=== PATIENT | female | born 1950 | race Caucasian/White ===

== ENCOUNTER 2020-11-17 05:36 | Inpatient (IN) ==
[2020-11-17] MEDS ORDERED: ONDANSETRON 4 MG/2 ML VIAL IV PRN ×2 (08:35→12:01)
[2020-11-17] MEDS ORDERED: ACETAMINOPHEN 325 MG TABLET PO PRN (08:35)
[2020-11-17] MEDS ORDERED: morphine 4 MG/ML VIAL IV PRN (08:35)
--- NOTE | 2020-11-17 08:41 | Internal Med History&Physical ---
HPI History of Present Illness Patient information: Note initiated : 11/17/20 at 8:39 am Service Date, if different from initiated Date: [] Patient: Catherine Valdez a 70 y/o F admitted on 11/17/20 for Fracture/Dislocation . Chief Complaint: [Fall with left hip fracture] History of present illness: Ms. Valdez is a 70 year old F h/o GERD, p/w fall with left hip fracture. She has multiple recent episodes of falls, but never had any bone fracture. Last night after having a glass of alcohol and taking an Ambien pill, she was walking in the living room towards her bedroom when her legs suddenly gave out and she fell with her left hip landed on the ground. She denies any LOC. She was sent to outside hospital ER, and hip X rat showed a left femur hip fracture, closed. She is currently complaining of right rib pain, but denies any left hip or left thigh pain as long as she is not moving her leg. Orthopedic surgeon notified and agreed on taking her for surgery. Constitutional Constitutional: Absent chills, excessive sweating, fatigue, fever(s) and weakness EENT Eyes: Absent blurry vision, change in vision, loss of vision and other visual disturbances Ears: Absent decreased hearing and tinnitus Nose, mouth and throat: Absent abnormal hearing, dry mouth, headache(s), nasal congestion and sore throat Cardiovascular Cardiovascular: Absent chest pain, chest pain at rest, edema, irregular heart rhythm and palpatations Respiratory Respiratory: Absent cough, dyspnea and wheezing Gastrointestinal Gastrointestinal: Absent abdominal pain, constipation, diarrhea, nausea and vomiting Musculoskeletal Musculoskeletal: Present limited range of motion; Absent back pain, deformity, muscle cramps, muscle weakness and numbness Additional comments: Right > left hand cogwheeling movement Integumentary Integumentary: Absent lesions, rash and wounds Neurological Neurological: Absent focal weakness, headache(s) and numbness Psychiatric Psychiatric: Absent anxiety, depression and hallucinations PFSH PFSH All Active Problems (Updated 11/17/20 @ 08:50 by Francisco Cano MD) Current tobacco use (Acute) Closed left hip fracture (Acute) Hx of cholecystectomy (Acute) Tubal ligation status (Acute) GERD (gastroesophageal reflux disease) (Acute) Social History (Updated 11/17/20 @ 08:48 by Francisco Cano MD) smoking status: Current every day smoker alcohol intake frequency: 0-2 drinks per day substance use type: does not use MEDS/ALLERGIES Home Medications and Allergies Home Medications Medication Instructions Recorded Confirmed Type pantoprazole [Protonix] 40 mg PO QD-BID 11/17/20 11/17/20 History spironolactone 25 mg PO QDAY 11/17/20 11/17/20 History zolpidem [Ambien] 5 mg PO QHS PRN 11/17/20 11/17/20 History Allergies Allergy/AdvReac Type Severity Reaction Status Date / Time Penicillins Allergy Unknown Verified 11/17/20 07:45 Sulfa (Sulfonamide Allergy Unknown Verified 11/17/20 07:44 Antibiotics) EXAM Constitutional Vitals: Temp Pulse Resp BP Pulse Ox 37.1 C 93 H 18 113/69 92 11/17/20 07:26 11/17/20 07:26 11/17/20 07:26 11/17/20 07:26 11/17/20 07:26 General appearance: cooperative and no acute distress Head Head exam: Present atraumatic and normocephalic Eye Eye exam: Present EOMI and PERRL ENT ENT exam: Present mucous membranes moist, normal exam and normal external ear exam Neck Neck exam: Present normal inspection; Absent lymphadenopathy, tenderness and thyromegaly Respiratory Respiratory exam: Absent accessory muscle use, respiratory distress and wheezes Cardiovascular Cardiovascular exam: Present normal rate and rhythm; Absent JVD GI/Abdominal GI/Abdominal exam: Present normal bowel sounds and soft; Absent organomegaly and tenderness Additional comments: Espinal catheter in place. Extremities Exam Extremities exam: Present normal capillary refill and normal inspection; Absent full ROM and tenderness Additional comments: Limited active and passive ROM of the left hip by pain. Right > left hand cogwheeling movement Neurological Exam Neurological exam: Present alert, CN II-XII intact and oriented X3; Absent motor sensory deficit Psychiatric Psychiatric exam: Present normal affect and normal mood; Absent anxious and depressed Skin Skin exam: Present dry and intact A/P Assessment and plan (1) GERD (gastroesophageal reflux disease): Status: Acute (2) Closed left hip fracture: Status: Acute (3) Current tobacco use: Status: Acute Narrative A/P Narrative: 1. Left closed hip femur fracture: Admit to inpatient med surg Orthopedic surgeon consulted, surgery planned NPO NS @ 100cc/hr Oxycodone 10mg PO q4hr PRN moderate pain Morphine 4mg IV q4hr PRN severe pain PT and OT evaluation after surgery Suspected undiagnosed Parkinson's Disease as reason for frequent fall given clinical presentation. Will continue to observed, need to be follow up with PCP to continue to evaluate and make the decision to start appropriate medications such as Sinemet SCDs for DVT ppx for the time being 2. GERD: Continue oral PPI from home regimen 3. Current tobacco use: Nicotine replacement therapy as needed for craving Time Spent With Patient Time: Total time spent is greater than 50% in coordination of care (as documented) at patient's floor/unit and/or counseling patient: Total time spent with greater than 50% in coordination of care (as documented) at patient's floor/unit and/or counseling patient:: 15 - 24 minutes QUALITY Stroke Symptom Onset Unknown: No VTE Deep Vein Thrombosis/Pulmonary Embolism Present on Admission: No
[2020-11-17] MEDS ORDERED: PANTOPRAZOLE 40 MG TABLET PO SCH (08:45)
[2020-11-17 09:37] LABS: Basophils # (Auto) 0.01 K/mcL (0.00-0.20); Basophils % (Auto) 0.1 % (0.0-2.0); Eosinophils # (Auto) 0.01 K/mcL (0.00-0.70); Eosinophils % (Auto) 0.1 % (0.0-7.0); Hematocrit 36.4 % (36.0-48.0); Hemoglobin 13.1 g/dL (12.0-15.0); Lymphocytes # (Auto) 0.73 K/mcL (1.50-4.80); Lymphocytes % (Auto) 10.6 % (15.0-49.0); Mean Cell Volume 103.4 fL (80.0-100.0); Mean Platelet Volume 8.9 fL (7.4-10.4); Monocytes # (Auto) 0.44 K/mcL (0.10-0.90); Monocytes % (Auto) 6.4 % (1.0-12.0); Neutrophils % (Auto) 82.8 % (38.0-78.0); Platelet Count 117 K/mcL (140-440); RBC 3.52 M/mcL (4.00-5.20); Red Cell Distribution Width 12.6 % (11.5-14.5); WBC 6.9 K/mcL (4.5-11.0)
[2020-11-17 09:57] LABS: ALT/SGPT 40 U/L (<40); AST/SGOT 70 U/L (<32); Albumin 3.3 gm/dL (3.2-5.2); Albumin/Globulin Ratio 1.3 (1.0-2.3); Alkaline Phosphatase 129 U/L (39-117); Bilirubin,Total 1.8 mg/dL (0.1-1.0); Blood Urea Nitrogen 6 mg/dL (8-23); Calcium 7.5 mg/dL (8.6-10.4); Carbon Dioxide 30 mmol/L (22-30); Chloride 96 mmol/L (96-108); Globulin 2.5 gm/dL (2.2-3.7); Glomerular Filtration Rate 93; Glucose 112 mg/dL (70-105)
[2020-11-17] MEDS: SPIRONOLACTONE 25 MG TABLET PO SCH (10:22)
[2020-11-17] MEDS: DOCUSATE SODIUM 100 MG CAPSULE PO SCH ×2 (10:22→20:53)
--- NOTE | 2020-11-17 10:40 | History and Physical Report ---
DATE OF ADMISSION: 11/17/2020 CHIEF COMPLAINT: Left hip pain. HISTORY OF PRESENT ILLNESS: The patient is a 70-year-old female who was in her home last evening and after having a drink of alcohol and an Ambien pill, she was headed to bed. She was reaching to turn off a lamp when she fell and suffered a left minimally-displaced femoral neck fracture. She was taken to the ED and transferred to [facility] where she was admitted by the hospitalist and Orthopedics was consulted. REVIEW OF SYSTEMS: Positive for right rib pain suffered during the fall as well. She has no chills, sweating, no weakness or fatigue. PAST MEDICAL HISTORY: GERD. PAST SURGICAL HISTORY: Cholecystectomy, tubal ligation. SOCIAL HISTORY: Patient does smoke approximately a half-pack to a full-pack per day. She drinks approximately one drink per evening. ALLERGIES: Patient states that she thinks she is allergic to PENICILLINS and SULFA antibiotics. CURRENT MEDICATIONS: 1. Pantoprazole 40 mg p.o. one to two daily. 2. Spironolactone 25 mg p.o. daily. 3. Ambien 5 mg p.o. at bedtime. PHYSICAL EXAMINATION: GENERAL: Patient is alert and oriented x3. She has appropriate mood and affect. She is in no acute distress. She does report discomfort due to her rib contusion versus fracture, also pain due to her left hip fracture. HEART: Regular. LUNGS: She does have expiratory wheezes noted on exam. EXTREMITIES: She has full active and passive range of motion in upper extremities with no pain. Right lower extremity, she is able to actively flex and extend the hip as well as the knee. She does report that this does bother her ribs and her left hip. She is able to fully plantar flex and dorsiflex the ankle and has 5/5 strength in both motions. She has palpable tibial pulse and no swelling. Good capillary refill. The left lower extremity, she is unable to move due to pain. She has tenderness to palpation over the greater trochanter of the hip. She is able to plantar flex and dorsiflex the ankle with 5/5 strength. She has palpable tibial pulse. IMAGING: X-rays do show a minimally-displaced left femoral neck fracture which was three views of the hip taken in [place] at [facility]. IMPRESSION: Mildly displaced left femoral neck fracture in a 70-year-old female with underlying osteoarthritis noted on x-ray. PLAN: Patient has elected to proceed with a left direct anterior total hip arthroplasty to be performed by Dr. Youngblood. I had a long discussion with the patient regarding the procedure and the postoperative protocol. I advised the patient of risks of the procedure including bleeding, infection, injury to nerves, blood vessels, and other structures in the area, and anesthetic risks. Patient was agreeable to these and is willing to proceed. JS:gladis Job ID: [id number] Doc ID: [id number] Marcelino Saldana PA-C
[2020-11-17] MEDS ORDERED: LIDOCAINE HCL/PF 100 MG/5 ML SYRINGE IV ONE (10:56)
[2020-11-17] MEDS ORDERED: ONDANSETRON 4 MG/2 ML VIAL ONE (10:56)
[2020-11-17] MEDS ORDERED: MAGNESIUM SULFATE 2 GM/50 ML BAG IV ONE (10:56)
[2020-11-17] MEDS ORDERED: GLYCOPYRROLATE 0.2 MG/ML VIAL IV ONE (10:56)
[2020-11-17] MEDS ORDERED: KETAMINE 50 MG/ML ML ONE (10:56)
[2020-11-17] MEDS ORDERED: ePHEDrine 50 MG/ML AMPUL IV ONE (10:56)
[2020-11-17] MEDS ORDERED: methylPREDNISolone SOD SUCC 125 MG/2 ML VIAL ONE (10:56)
[2020-11-17] MEDS ORDERED: fentaNYL 250 MCG/5 ML VIAL IV ONE (10:56)
[2020-11-17] MEDS ORDERED: TRANEXAMIC ACID 1,000 MG/10 ML VIAL IV ONE ×2 (10:56→12:31)
[2020-11-17] MEDS ORDERED: DEXAMETHASONE 10 MG/ML VIAL ONE (10:56)
[2020-11-17] MEDS ORDERED: PROPOFOL 200 MG/20 ML VIAL IV ONE (10:56)
[2020-11-17] MEDS ORDERED: SUCCINYLCHOLINE 20 MG/ML ML IV ONE (10:56)
[2020-11-17] MEDS ORDERED: MIDAZOLAM 5 MG/5 ML VIAL ONE (10:56)
[2020-11-17] MEDS ORDERED: HYDROmorphone 1 MG/ML SYRINGE ONE (10:56)
[2020-11-17] MEDS ORDERED: ceFAZolin 2 GM in DEXTROSE 5% IN WATER 50 ML IV SCH (11:00)
[2020-11-17] MEDS ORDERED: ceFAZolin 1 GM VIAL IV SCH (11:00)
[2020-11-17] MEDS ORDERED: ceFAZolin 2 GM in DEXTROSE 5% IN WATER 50 ML IV ONE (11:30)
[2020-11-17] MEDS ORDERED: MEPERIDINE 25 MG/ML VIAL IV PRN (12:01)
[2020-11-17] MEDS ORDERED: diphenhydrAMINE 50 MG/ML VIAL IV PRN (12:01)
[2020-11-17] MEDS ORDERED: NALOXONE HCL 0.4 MG/ML VIAL IV PRN (12:01)
[2020-11-17] MEDS ORDERED: ATROPINE SULFATE 0.4 MG/ML VIAL IV PRN (12:01)
[2020-11-17] MEDS ORDERED: fentaNYL 100 MCG/2 ML VIAL IV PRN (12:01)
[2020-11-17] MEDS ORDERED: HYDROmorphone 0.5 MG/0.5 ML SYRINGE IV PRN (12:01)
[2020-11-17] MEDS ORDERED: METOPROLOL TARTRATE 5 MG/5 ML VIAL IV PRN (12:01)
[2020-11-17] MEDS ORDERED: ePHEDrine 50 MG/ML AMPUL IV PRN (12:01)
[2020-11-17] MEDS ORDERED: IPRATROPIUM/ALBUTEROL 3 ML AMPUL.NEB NEB PRN (12:01)
[2020-11-17] MEDS ORDERED: ACETAMINOPHEN 1,000 MG/100 ML BAG IV ONE (12:01)
[2020-11-17] MEDS ORDERED: METHOCARBAMOL 1,000 MG/10 ML VIAL IV PRN (12:01)
[2020-11-17] MEDS ORDERED: FLUMAZENIL 0.1 MG/ML ML IV PRN (12:01)
[2020-11-17] MEDS ORDERED: PROMETHAZINE 25 MG/ML VIAL IV PRN (12:01)
[2020-11-17] MEDS ORDERED: LORazepam 2 MG/ML VIAL IV ONE (12:05)
[2020-11-17] MEDS ORDERED: LACTATED RINGERS 1,000 ML IV SCH (12:15)
--- NOTE | 2020-11-17 12:30 | Brief Operative Note ---
Brief Operative Note Date of procedure: 11/17/20 Pre-op diagnosis: Left displaced femoral neck fracture Post-op diagnosis: other (same plus arthritis) Procedure: Left anterior total hip arthroplasty Grafts/Implants: Yes (Depuy Actis 6 std stem, +8.5 36 delta head, 54 cup, neutral liner) Anesthesia: GETA Findings: femoral neck fracture, arthritis Complications: none Surgeon: Mendoza Youngblood Real Estate Sales Agent: Marcelino Saldana Estimated blood loss (cc): 300 Specimens Removed/Pathology: none sent Condition: stable Disposition: PACU
[2020-11-17] MEDS ORDERED: POLYETHYLENE GLYCOL 3350 17 GM PACKET PO PRN (12:31)
[2020-11-17] MEDS ORDERED: BENZOCAINE/MENTHOL 1 LOZENGE PO PRN (12:31)
[2020-11-17] MEDS ORDERED: FLEETS ADULT ENEMA PR PRN (12:31)
[2020-11-17] MEDS ORDERED: BISACODYL 10 MG SUPP.RECT PR PRN (12:31)
--- NOTE | 2020-11-17 13:07 | Discharge Plan ---
Discharge Instructions - JOHNY Patient Instructions Total Hip Protocol: Follow activity instructions as provided by Physical Therapy. Discharge Plan Patient/Caregiver Discharge Instructions Activity: ambulate only with your walker and as per physical therapy Diet: Regular Diet Prescriptions: New docusate sodium [DOK] 100 mg Capsule 100 mg PO BID Qty: 60 RF: 0 hydrocodone-acetaminophen 10-325 mg Tablet 1 - 2 tab PO Q4H PRN (Reason: Pain) Qty: 75 RF: 0 No Action pantoprazole [Protonix] 40 mg Tablet,Delayed Release (Dr/Ec) 40 mg PO QD-BID RF: 0 zolpidem [Ambien] 5 mg Tablet 5 mg PO QHS PRN (Reason: Insomnia) RF: 0 spironolactone 25 mg Tablet 25 mg PO QDAY RF: 0 Other Ambulatory Orders: Physical Therapy DC - JOHNY (Routine) Location: None Selected Ordered By: Jeronimo Clements Toilet Riser Discharge Order (ONCE) Location: None Selected Ordered By: Jeronimo Clements Walker (ONCE) Location: None Selected Ordered By: Jeronimo Clements Follow Up Plan Follow up with: Jeronimo Clements PA-C [Physician Developmental Therapist] - Patient Disposition: Home, Self-Care Prognosis: Good Rehab Potential: Good I certify that the patient requires SNF services: No Overall status at discharge: patient is progressing back to baseline Discharge Orders: Discharge Order (Routine); Ordered 11/18/20 Ordered By: Jeronimo Clements
--- NOTE | 2020-11-17 13:16 | XRay Report ---
HISTORY: Postop left hip arthroplasty FINDINGS: There is a well-positioned left total hip prosthesis. No fracture is present. Lateral to the acetabular roof there are couple small heterotopic calcifications. Preoperative x-ray is not available for comparison. IMPRESSION: Well-positioned left hip prosthesis Interpreted and Authenticated by: Ted Triplett 11/17/20
[2020-11-17] MEDS: 0.9 % SODIUM CHLORIDE 1,000 ML IV SCH ×4 (13:45→23:42)
[2020-11-17] MEDS: 0.9 % SODIUM CHLORIDE 10 ML SYRINGE IV SCH ×2 (13:59→20:53)
[2020-11-17] MEDS ORDERED: 0.9 % SODIUM CHLORIDE 10 ML SYRINGE IV SCH (14:00)
--- NOTE | 2020-11-17 14:52 | XRay Report ---
HISTORY: FINDINGS: IMPRESSION: 0.4 minutes of fluoroscopy time was used Interpreted and Authenticated by: Ted Triplett 11/17/20
--- NOTE | 2020-11-17 17:17 | Operative Note ---
DATE OF OPERATION: 11/17/2020 PREOPERATIVE DIAGNOSIS: Left femoral neck displaced, closed fracture. POSTOPERATIVE DIAGNOSES: 1. Left femoral neck displaced, closed fracture. 2. Hip arthrosis. PROCEDURE PERFORMED: Left direct anterior total hip arthroplasty placing a DePuy Actis size 54 [place] cup with a neutral AltrX liner, size 6 standard offset femoral stem with a +8.5, 36 mm Delta ceramic head. SURGEON: Mendoza Youngblood M.D. CENTER HUMAN RESOURCES MANAGER: Bernabe Saldana PA-C. The PA's assistance was required for the safe and efficient completion of the entire case. This provider's expertise and technical skill were required throughout the case. The PA assisted with preoperative coordination, intraoperative retraction, wound closure, dressing and splint application, as well as postoperative documentation and care coordination. ANESTHESIA: General. DRAINS: None. SPECIMEN: Femoral head, which was discarded ESTIMATED BLOOD LOSS: 300 mL. POSTOPERATIVE CONDITION: Stable. INDICATIONS FOR SURGERY: This is a 70-year-old female who sustained a fall that is having pain and inability to bear weight. She was taken to the emergency department. X-rays showed a displaced femoral neck fracture. FINDINGS AT SURGERY: Acute displaced femoral neck fracture with significant arthrosis of the hip joint. Post-procedure showed satisfactory component position with relative equalization of leg length and offset. PROCEDURE IN DETAIL: The patient had been seen preoperatively. Informed consent obtained after discussion of risks and benefits of surgery. Risks including, but not limited to, bleeding; infection; injury to nerves, blood vessels, and other surrounding structures; anesthetic risks; incomplete or no resolution of symptoms; leg length discrepancy; dislocation; fracture; DVT and pulmonary embolus risks; and the possibility of needing further revision joint surgery. The patient understood these risks and wished to proceed. Correct operative site was marked and then spinal anesthesia given. The patient was then taken to the operating room and LMA general given. The patient was carefully transferred to the fracture table and then the operative hip was carefully prepped and draped in normal sterile fashion. Timeout was performed verifying patient name, operative site, and plan. Ioban was used to cover all skin surfaces. A standard anterior approach incision was made with a scalpel through skin and subcutaneous tissue. Hemostasis was obtained with Bovie cautery. Careful blunt dissection was taken down on the tensor fascia and then this was undermined circumferentially. IrriSept was irrigated and a ring retractor placed. Tensor fascia was incised in line with muscle fibers and then careful blunt dissection taken medial to the muscle belly. Blunt cobra retractors were placed on the superior and inferior femoral neck and then circumflex vessels were coagulated and cut and vastus fascia split distally. Anterior capsulectomy was performed and then the capsule releases. Upon entering the capsule, a large hemarthrosis was aspirated. Corkscrew was placed in the femoral head. Prior to placement of the corkscrew we did take x-rays for joint point. Once a corkscrew was placed we used fluoroscopy to identify our approximate neck cut trajectory and then our femoral neck was cut with oscillating tip saw. Femoral head was removed and the acetabulum exposed. Labrum was excised circumferentially as well as soft tissue from the floor. We then irrigated with IrriSept. We then began sequentially reaming until 1 mm smaller than the final implant. We then opened the acetabular component. IrriSept was irrigated, after a minute pulse lavaged with saline and then the cup was impacted using the [id number]. Joint point was used to verify satisfactory cup position. A center hole cover was placed and then the acetabular liner was carefully aligned and impacted and carefully verified to be fully seated. We then released traction. The leg was externally rotated and released capsule around the medial neck. The leg was then extended and adducted. Capsule was released out towards greater trochanter and then the proximal femur was exposed. Box osteotome was used to gain canal entry and an awl was used to identify canal trajectory. Rongeur and rasp were used to lateralize and then we began sequentially broaching up to the final size. We calcar planed down onto the broach and then the neck trial and head ball were placed. The hip was reduced. Fluoro was brought in and x-rays taken, joint point was used to verify satisfactory position. We then re-dislocated and removed the trial implants. Definitive implants were opened. We then irrigated the femoral canal with IrriSept again, after a minute pulse lavaged with saline. The final stem was impacted and seated. We then opened the head ball. The stem was carefully cleaned and dried and the head ball was impacted. We then reduced the hip with satisfactory tension. Final fluoro images were taken and saved. We irrigated the joint with IrriSept, after a minute pulse lavaged with saline again and then closed the tensor fascia with two running #1 Vicryls, one running proximal, one running distal and a ring retractor was removed. Final IrriSept irrigation was done, after a minute final pulse lavage, and then fat was tacked to fascia with Vicryl and then 2-0 Monocryl for subcutaneous and Guille Zip closure for skin. Xeroform and sterile dressing were applied. The patient was then awakened, extubated, and transferred to recovery in stable condition. DECLAN:gladis Job ID: [id number] Doc ID: [id number] Mendoza Youngblood MD
[2020-11-17] MEDS: SENNOSIDES 1 TABLET PO SCH (20:52)
[2020-11-17] MEDS: ceFAZolin 1 GM VIAL IV SCH (20:52)
[2020-11-17] MEDS: ZOLPIDEM 5 MG TABLET PO PRN (21:46)
[2020-11-18] MEDS: ceFAZolin 1 GM VIAL IV SCH (04:31)
[2020-11-18] MEDS: 0.9 % SODIUM CHLORIDE 10 ML SYRINGE IV SCH ×3 (04:32→20:09)
--- NOTE | 2020-11-18 06:45 | Orthopedic Progress Note ---
SUBJECTIVE Subjective Patient information: Note initiated : 11/18/20 at 6:39 am Service Date, if different from initiated Date: [] Patient: Catherine Valdez 70 y/o F admitted on 11/17/20 for Fracture /Dislocation . Chief Complaint: [POD 1 s/p left anterior total hip arthroplasty. No complaints this AM. Pain is managed. Has ambulated. Tolerating oral diet] Constitutional Vitals: Vital Signs Temp Pulse Resp BP Pulse Ox 97.8 F 86 14 96/60 92 11/18/20 04:29 11/18/20 04:29 11/18/20 04:29 11/18/20 04:29 11/18/20 04:29 Period Temp Pulse Resp BP Sys/Rivas Pulse Ox Last 24 Hr 96.5 F-98.7 F 81-102 10-20 96-153/59-86 92-100 Intake and Output 11/17/20 11/18/20 11/18/20 21:59 05:59 13:59 Intake Total 1000 2000 Output Total 1000 Balance 1000 1000 Weight 145 lb 1.6 oz Intake & Output: Intake & Output 11/17/20 11/18/20 11/18/20 21:59 05:59 13:59 Intake Total 1000 2000 Output Total 1000 Balance 1000 1000 Weight 145 lb 1.6 oz Intake: IV 1000 Sodium Chloride 0.9% 1,000 ml @ 1000 100 mls/hr IV .Q10H [facility] Rx#: [id number] Oral 1000 1000 Output: Urine Catheter Amount 1000 Other: Meal Dinner Percent of Meal Consumed 50% Urine Appearance Clear Clear Urine Color Dark Yellow Dark Yellow Urine Odor Normal Additional findings Additional findings: General: alert, oriented and appropriate Left hip: silver dressing clean and dry in place. No strikethrough. Foot warm well perfused. OBJ DATA Labs CBC & Chem 7: 11/17/20 08:46 11/17/20 08:46 Labs: Abnormal Lab Results 11/17/20 11/17/20 08:46 08:46 RBC 3.52 L MCV 103.4 H MCH 37.2 H Plt Count 117 L Neut % (Auto) 82.8 H Lymph % (Auto) 10.6 L Lymph # (Auto) 0.73 L Potassium 3.1 L BUN 6 L Glucose 112 H Calcium 7.5 L Total Bilirubin 1.8 H AST 70 H ALT 40 H Alkaline Phosphatase 129 H Total Protein 5.8 L Meds: Medications Acetaminophen (Acetaminophen 325 Mg Tablet) 650 mg PO Q6HP PRN; Protocol PRN Reason: Per Pain Protocol/Fever > 101 Bisacodyl (Bisacodyl 10 Mg Supp.Rect) 10 mg CA Q2-3DAYS PRN PRN Reason: Constipation Docusate Sodium (Docusate Sodium 100 Mg Capsule) 100 mg PO BID [facility] Last Admin: 11/17/20 20:53 Dose: 100 mg Documented by: Enoxaparin Sodium (Enoxaparin 40 Mg/0.4 Ml Syringe) 40 mg SQ DAILY [facility] Sodium Chloride (Sodium Chloride 0.9%) 1,000 mls @ 100 mls/hr IV .Q10H [facility] Last Infusion: 11/17/20 23:42 Dose: Infused Documented by: Morphine Sulfate (Morphine 4 Mg/Ml Vial) 4 mg IV Q4HP PRN; Protocol PRN Reason: Per Pain Protocol Ondansetron HCl (Ondansetron 4 Mg/2 Ml Vial) 4 mg IV Q6HP PRN PRN Reason: Nausea And Vomiting Oxycodone HCl (Oxycodone Hcl 5 Mg Tablet) 10 mg PO Q4HP PRN; Protocol PRN Reason: Per Pain Protocol Pantoprazole Sodium (Pantoprazole 40 Mg Tablet) 40 mg PO QD-BID [facility] Polyethylene Glycol (Polyethylene Glycol 3350 17 Gm Packet) 17 gm PO DAILYP PRN PRN Reason: Constipation Senna (Sennosides 1 Tablet) 2 tab PO HS [facility] Last Admin: 11/17/20 20:52 Dose: 2 tab Documented by: Sodium Biphosphate/Sodium Phosphate (Fleets Adult Enema) 1 dose CA Q3-4DAYS PRN PRN Reason: Constipation Sodium Chloride (0.9 % Sodium Chloride 10 Ml Syringe) 10 ml IV Q8 [facility] Last Admin: 11/18/20 04:32 Dose: 10 ml Documented by: Spironolactone (Spironolactone 25 Mg Tablet) 25 mg PO QDAY [facility] Last Admin: 11/17/20 10:22 Dose: Not Given Documented by: Throat Lozenges (Benzocaine/Menthol 1 Lozenge) 1 lozenge PO PRN PRN PRN Reason: Sore Throat Last Admin: 11/17/20 20:53 Dose: 1 lozenge Documented by: Zolpidem Tartrate (Zolpidem 5 Mg Tablet) 5 mg PO QHS PRN PRN Reason: Insomnia Last Admin: 11/17/20 21:46 Dose: 5 mg Documented by: A/P Assessment and plan (1) Closed left hip fracture: Status: Acute Comment: POD 1 s/p L anterior JOHNY for a displaced left femoral neck fracture -- Weight bearing as tolerated ---PT --oral pain medications --regular diet --has rib pain that is improving --Prophy: IS, foot pumps, asa, ambulation --Dispo: pending but from an ortho standpoint ok to d/c. Patient mentioned a rehab facility which maybe appropriate given her fall history. Can see how she does with therapy. Prescriptions are in chart with follow up recs. OK to shower with silver dressing in place and should leave in place until follow up appointment with orthopedics. Therapy consult in chart. Time Spent With Patient Time: Total time spent is greater than 50% in coordination of care (as documented) at patient's floor/unit and/or counseling patient:
--- NOTE | 2020-11-18 08:28 | Internal Med Progress Note ---
SUBJECTIVE Subjective Patient information: Note initiated : 11/18/20 at 8:25 am Service Date, if different from initiated Date: [] Patient: Catherine Valdez 70 y/o F admitted on 11/17/20 for Fracture /Dislocation . Chief Complaint: [Fall with resultant left femur fracture] Overnight: s/p left femur ORIF by orthopedic surgeon. Passed gas but no bowel movement yet. Subjective: Denies any left hip/thigh pain. c/o Right ribcage pain. Passed gas but no bowel movement yet. Tolerating regular diet. Constitutional Vitals: Vital Signs Temp Pulse Resp BP Pulse Ox 36.7 C 86 16 89/56 93 11/18/20 08:00 11/18/20 08:00 11/18/20 08:00 11/18/20 08:00 11/18/20 08:00 Period Temp Pulse Resp BP Sys/Rivas Pulse Ox Last 24 Hr 35.8 C-36.9 C 81-102 10-20 89-153/56-86 92-100 Intake and Output 11/17/20 11/18/20 11/18/20 21:59 05:59 13:59 Intake Total 1000 2000 Output Total 1000 Balance 1000 1000 Weight 65.816 kg Intake & Output: Intake & Output 11/17/20 11/18/20 11/18/20 21:59 05:59 13:59 Intake Total 1000 2000 Output Total 1000 Balance 1000 1000 Weight 65.816 kg Intake: IV 1000 Sodium Chloride 0.9% 1,000 ml @ 1000 100 mls/hr IV .Q10H [facility] Rx#: [id number] Oral 1000 1000 Output: Urine Catheter Amount 1000 Other: Meal Dinner Percent of Meal Consumed 50% Urine Appearance Clear Clear Urine Color Dark Yellow Dark Yellow Urine Odor Normal General appearance: cooperative and no acute distress Head Head exam: Present atraumatic and normocephalic Eye Eye exam: Present EOMI and PERRL ENT ENT exam: Present mucous membranes moist, normal exam and normal external ear exam Neck Neck exam: Present normal inspection; Absent lymphadenopathy, tenderness and thyromegaly Respiratory Respiratory exam: Absent accessory muscle use, respiratory distress and wheezes Cardiovascular Cardiovascular exam: Present normal rate and rhythm; Absent JVD GI/Abdominal GI/Abdominal exam: Present normal bowel sounds and soft; Absent organomegaly and tenderness Extremities Exam Extremities exam: Present normal capillary refill and normal inspection; Absent full ROM and tenderness Additional comments: Right thigh covered with surgical dressing. Active and passive ROMs limited by pain. Neurological Exam Neurological exam: Present alert, CN II-XII intact and oriented X3; Absent motor sensory deficit Psychiatric Psychiatric exam: Present normal affect and normal mood; Absent anxious and depressed Skin Skin exam: Present dry and intact OBJ DATA Labs CBC & Chem 7: 11/17/20 08:46 11/17/20 08:46 Labs: Abnormal Lab Results 11/17/20 11/17/20 08:46 08:46 RBC 3.52 L MCV 103.4 H MCH 37.2 H Plt Count 117 L Neut % (Auto) 82.8 H Lymph % (Auto) 10.6 L Lymph # (Auto) 0.73 L Potassium 3.1 L BUN 6 L Glucose 112 H Calcium 7.5 L Total Bilirubin 1.8 H AST 70 H ALT 40 H Alkaline Phosphatase 129 H Total Protein 5.8 L Meds: Medications Acetaminophen (Acetaminophen 325 Mg Tablet) 650 mg PO Q6HP PRN; Protocol PRN Reason: Per Pain Protocol/Fever > 101 Bisacodyl (Bisacodyl 10 Mg Supp.Rect) 10 mg MS Q2-3DAYS PRN PRN Reason: Constipation Docusate Sodium (Docusate Sodium 100 Mg Capsule) 100 mg PO BID [facility] Last Admin: 11/17/20 20:53 Dose: 100 mg Documented by: Enoxaparin Sodium (Enoxaparin 40 Mg/0.4 Ml Syringe) 40 mg SQ DAILY [facility] Sodium Chloride (Sodium Chloride 0.9%) 1,000 mls @ 100 mls/hr IV .Q10H [facility] Last Infusion: 11/17/20 23:42 Dose: Infused Documented by: Morphine Sulfate (Morphine 4 Mg/Ml Vial) 4 mg IV Q4HP PRN; Protocol PRN Reason: Per Pain Protocol Ondansetron HCl (Ondansetron 4 Mg/2 Ml Vial) 4 mg IV Q6HP PRN PRN Reason: Nausea And Vomiting Oxycodone HCl (Oxycodone Hcl 5 Mg Tablet) 10 mg PO Q4HP PRN; Protocol PRN Reason: Per Pain Protocol Pantoprazole Sodium (Pantoprazole 40 Mg Tablet) 40 mg PO QD-BID [facility] Polyethylene Glycol (Polyethylene Glycol 3350 17 Gm Packet) 17 gm PO DAILYP PRN PRN Reason: Constipation Senna (Sennosides 1 Tablet) 2 tab PO HS [facility] Last Admin: 11/17/20 20:52 Dose: 2 tab Documented by: Sodium Biphosphate/Sodium Phosphate (Fleets Adult Enema) 1 dose MS Q3-4DAYS PRN PRN Reason: Constipation Sodium Chloride (0.9 % Sodium Chloride 10 Ml Syringe) 10 ml IV Q8 [facility] Last Admin: 11/18/20 04:32 Dose: 10 ml Documented by: Spironolactone (Spironolactone 25 Mg Tablet) 25 mg PO QDAY [facility] Last Admin: 11/17/20 10:22 Dose: Not Given Documented by: Throat Lozenges (Benzocaine/Menthol 1 Lozenge) 1 lozenge PO PRN PRN PRN Reason: Sore Throat Last Admin: 11/17/20 20:53 Dose: 1 lozenge Documented by: Zolpidem Tartrate (Zolpidem 5 Mg Tablet) 5 mg PO QHS PRN PRN Reason: Insomnia Last Admin: 11/17/20 21:46 Dose: 5 mg Documented by: A/P Assessment and plan (1) GERD (gastroesophageal reflux disease): Status: Acute (2) Closed left hip fracture: Status: Acute Comment: POD 1 s/p L anterior JOHNY for a displaced left femoral neck fracture -- Weight bearing as tolerated ---PT --oral pain medications --regular diet --has rib pain that is improving --Prophy: IS, foot pumps, asa, ambulation --Dispo: pending but from an ortho standpoint ok to d/c. Patient mentioned a rehab facility which maybe appropriate given her fall history. Can see how she does with therapy. Prescriptions are in chart with follow up recs. OK to shower with silver dressing in place and should leave in place until follow up appointment with orthopedics. Therapy consult in chart. (3) Current tobacco use: Status: Acute Narrative A/P Narrative: 1. Left closed hip femur fracture: s/p left hip/femur ORIF by orthopedic surgeon Stays in inpatient med surg Regular diet Oxycodone 10mg PO q4hr PRN moderate pain Morphine 4mg IV q4hr PRN severe pain Ancef for gen-surgical prophylaxis PT and OT evaluation after surgery Suspected undiagnosed Parkinson's Disease as reason for frequent fall given clinical presentation. Will continue to observed, need to be follow up with PCP to continue to evaluate and make the decision to start appropriate medications such as Sinemet SCDs for DVT ppx for the time being 2. GERD: Continue oral PPI from home regimen 3. Current tobacco use: Nicotine replacement therapy as needed for craving Time Spent With Patient Time: Total time spent is greater than 50% in coordination of care (as documented) at patient's floor/unit and/or counseling patient: QUALITY Stroke Symptom Onset Unknown: No VTE Deep Vein Thrombosis/Pulmonary Embolism Present on Admission: No
[2020-11-18] MEDS: DOCUSATE SODIUM 100 MG CAPSULE PO SCH ×2 (08:35→20:09)
[2020-11-18] MEDS: SPIRONOLACTONE 25 MG TABLET PO SCH (08:35)
[2020-11-18] MEDS: ENOXAPARIN 40 MG/0.4 ML SYRINGE SQ SCH (08:36)
[2020-11-18] MEDS: 0.9 % SODIUM CHLORIDE 1,000 ML IV SCH ×2 (08:46→17:17)
[2020-11-18 09:01] LABS: Basophils # (Auto) 0.01 K/mcL (0.00-0.20); Basophils % (Auto) 0.1 % (0.0-2.0); Eosinophils # (Auto) 0 K/mcL (0.00-0.70); Eosinophils % (Auto) 0 % (0.0-7.0); Hemoglobin 10.2 g/dL (12.0-15.0); Lymphocytes # (Auto) 0.38 K/mcL (1.50-4.80); Lymphocytes % (Auto) 4.4 % (15.0-49.0); Mean Cell Volume 106.2 fL (80.0-100.0); Mean Corpuscular HGB Conc 35.2 g/dL (31.0-36.0); Mean Platelet Volume 9.5 fL (7.4-10.4); Monocytes # (Auto) 0.37 K/mcL (0.10-0.90); Monocytes % (Auto) 4.3 % (1.0-12.0); Neutrophils % (Auto) 91.2 % (38.0-78.0); Platelet Count 101 K/mcL (140-440); RBC 2.73 M/mcL (4.00-5.20); Red Cell Distribution Width 12.5 % (11.5-14.5); WBC 8.6 K/mcL (4.5-11.0)
[2020-11-18 09:40] LABS: Blood Urea Nitrogen 7 mg/dL (8-23); Calcium 6.9 mg/dL (8.6-10.4); Carbon Dioxide 30 mmol/L (22-30); Chloride 96 mmol/L (96-108); Glomerular Filtration Rate 93; Glucose 115 mg/dL (70-105)
[2020-11-18] MEDS ORDERED: POTASSIUM CHLORIDE 20 MEQ in DEXTROSE 5% IN WATER 250 ML IV ONE (09:47)
--- NOTE | 2020-11-18 17:17 | Internal Med Progress Note ---
SUBJECTIVE Subjective Patient information: Note initiated : 11/18/20 at 5:13 pm Service Date, if different from initiated Date: [] Patient: Catherine Valdez 70 y/o F admitted on 11/17/20 for Fracture /Dislocation . Chief Complaint: [] Interval history: 11/18 Overnight: s/p left femur ORIF by orthopedic surgeon. Passed gas but no bowel movement yet. Subjective: Denies any left hip/thigh pain. c/o Right ribcage pain. Passed gas but no bowel movement yet. Tolerating regular diet. 11/19 Constitutional Vitals: Vital Signs Temp Pulse Resp BP Pulse Ox 97.5 F 90 16 92/59 94 11/18/20 16:00 11/18/20 16:00 11/18/20 16:00 11/18/20 16:00 11/18/20 16:00 Period Temp Pulse Resp BP Sys/Rivas Pulse Ox Last 24 Hr 97.5 F-98.7 F 86-98 14-20 86-107/53-69 92-98 Intake and Output 11/18/20 11/18/20 11/18/20 05:59 13:59 21:59 Intake Total 2000 260 Output Total 1000 Balance 1000 260 Weight 65.816 kg Patient Weight 11/19/20 05:59 Weight 65.816 kg Intake & Output: Intake & Output 11/18/20 11/18/20 11/18/20 05:59 13:59 21:59 Intake Total 2000 260 Output Total 1000 Balance 1000 260 Weight 65.816 kg Intake: IV 1000 260 Sodium Chloride 0.9% 1,000 ml @ 1000 100 mls/hr IV .Q10H [facility] Rx#: [id number] Potassium Chloride 20 Meq In 260 Dextrose 5% in Water 250 ml @ 130 mls/hr IV ONCE ONE Rx#: [id number] Oral 1000 Output: Urine Catheter Amount 1000 Other: Meal Lunch Percent of Meal Consumed 50% Feeding Ability Independent Urine Appearance Clear Urine Color Dark Yellow Urine Odor Normal # Voids 1 Exam: General: Alert, Awake, No acute Distress Eyes/N/T: EOMI, Head/Neck: neck supple, CV: RRR, No murmurs, Pulm: Clear b/l, no wheezing/rhonchi/rales Abd: soft, nontender, +BS x4 Ext: no clubbing/cyanosis/edema, RLE in surgical dressings Neuro: Alert, no focal deficits, moves all extremities, Skin: warm/dry OBJ DATA Labs CBC & Chem 7: 11/18/20 06:05 11/18/20 06:05 Labs: Abnormal Lab Results 11/18/20 11/18/20 11/17/20 06:05 06:05 08:46 RBC 2.73 L Hgb 10.2 L Hct 29.0 L MCV 106.2 H MCH 37.4 H Plt Count 101 L Neut % (Auto) 91.2 H Lymph % (Auto) 4.4 L Lymph # (Auto) 0.38 L Potassium 2.9 L* 3.1 L BUN 7 L 6 L Glucose 115 H 112 H Calcium 6.9 L 7.5 L Total Bilirubin 1.8 H AST 70 H ALT 40 H Alkaline Phosphatase 129 H Total Protein 5.8 L 11/17/20 08:46 RBC 3.52 L Hgb Hct MCV 103.4 H MCH 37.2 H Plt Count 117 L Neut % (Auto) 82.8 H Lymph % (Auto) 10.6 L Lymph # (Auto) 0.73 L Potassium BUN Glucose Calcium Total Bilirubin AST ALT Alkaline Phosphatase Total Protein Meds: Medications Acetaminophen (Acetaminophen 325 Mg Tablet) 650 mg PO Q6HP PRN; Protocol PRN Reason: Per Pain Protocol/Fever > 101 Last Admin: 11/18/20 08:37 Dose: 650 mg Documented by: Bisacodyl (Bisacodyl 10 Mg Supp.Rect) 10 mg [place] Q2-3DAYS PRN PRN Reason: Constipation Docusate Sodium (Docusate Sodium 100 Mg Capsule) 100 mg PO BID [facility] Last Admin: 11/18/20 08:35 Dose: 100 mg Documented by: Enoxaparin Sodium (Enoxaparin 40 Mg/0.4 Ml Syringe) 40 mg SQ DAILY [facility] [place] Last Admin: 11/18/20 08:36 Dose: 40 mg Documented by: Sodium Chloride (Sodium Chloride 0.9%) 1,000 mls @ 100 mls/hr IV .Q10H [facility] [place] Last Admin: 11/18/20 08:46 Dose: Not Given Documented by: Morphine Sulfate (Morphine 4 Mg/Ml Vial) 4 mg IV Q4HP PRN; Protocol PRN Reason: Per Pain Protocol Last Admin: 11/18/20 11:07 Dose: 4 mg Documented by: Ondansetron HCl (Ondansetron 4 Mg/2 Ml Vial) 4 mg IV Q6HP PRN PRN Reason: Nausea And Vomiting Oxycodone HCl (Oxycodone Hcl 5 Mg Tablet) 10 mg PO Q4HP PRN; Protocol PRN Reason: Per Pain Protocol Pantoprazole Sodium (Pantoprazole 40 Mg Tablet) 40 mg PO QD-BID [facility] [place] Polyethylene Glycol (Polyethylene Glycol 3350 17 Gm Packet) 17 gm PO DAILYP PRN PRN Reason: Constipation Senna (Sennosides 1 Tablet) 2 tab PO HS [facility] [place] Last Admin: 11/17/20 20:52 Dose: 2 tab Documented by: Sodium Biphosphate/Sodium Phosphate (Fleets Adult Enema) 1 dose [place] Q3-4DAYS PRN PRN Reason: Constipation Sodium Chloride (0.9 % Sodium Chloride 10 Ml Syringe) 10 ml IV Q8 [facility] [place] Last Admin: 11/18/20 13:59 Dose: 10 ml Documented by: Spironolactone (Spironolactone 25 Mg Tablet) 25 mg PO QDAY [facility] [place] Last Admin: 11/18/20 08:35 Dose: 25 mg Documented by: Throat Lozenges (Benzocaine/Menthol 1 Lozenge) 1 lozenge PO PRN PRN PRN Reason: Sore Throat Last Admin: 11/17/20 20:53 Dose: 1 lozenge Documented by: Zolpidem Tartrate (Zolpidem 5 Mg Tablet) 5 mg PO QHS PRN PRN Reason: Insomnia Last Admin: 11/17/20 21:46 Dose: 5 mg Documented by: A/P Narrative A/P Narrative: A: *Left closed hip femur fracture: s/p ORIF (11/17) *HYpokalemia: *GERD: *Current tobacco use: *HTN: P: -hip and pain control per ortho -Replete electrolytes -cont home aldactone -CM for placement -pt/ot -Smoking cessation counseling -ppx: lovenox/home ppi Time Spent With Patient Time: Total time spent is greater than 50% in coordination of care (as documented) at patient's floor/unit and/or counseling patient: QUALITY Stroke Symptom Onset Unknown: No VTE Deep Vein Thrombosis/Pulmonary Embolism Present on Admission: No
[2020-11-18] MEDS ORDERED: POTASSIUM CHLORIDE 20 MEQ TABLET PO ONE (17:18)
[2020-11-18] MEDS: oxyCODONE HCL 5 MG TABLET PO PRN (20:09)
[2020-11-18] MEDS: SENNOSIDES 1 TABLET PO SCH (20:09)
[2020-11-18] MEDS: ZOLPIDEM 5 MG TABLET PO PRN (20:09)
[2020-11-19] MEDS: 0.9 % SODIUM CHLORIDE 10 ML SYRINGE IV SCH ×3 (04:52→20:14)
[2020-11-19 07:46] LABS: Basophils # (Auto) 0.03 K/mcL (0.00-0.20); Basophils % (Auto) 0.5 % (0.0-2.0); Eosinophils # (Auto) 0.03 K/mcL (0.00-0.70); Eosinophils % (Auto) 0.5 % (0.0-7.0); Hematocrit 29.7 % (36.0-48.0); Hemoglobin 9.9 g/dL (12.0-15.0); Lymphocytes % (Auto) 14.8 % (15.0-49.0); Mean Cell Volume 110.8 fL (80.0-100.0); Mean Corpuscular HGB Conc 33.3 g/dL (31.0-36.0); Mean Platelet Volume 9.2 fL (7.4-10.4); Monocytes # (Auto) 0.38 K/mcL (0.10-0.90); Monocytes % (Auto) 6.3 % (1.0-12.0); Neutrophils % (Auto) 77.9 % (38.0-78.0); Platelet Count 90 K/mcL (140-440); RBC 2.68 M/mcL (4.00-5.20); Red Cell Distribution Width 12.8 % (11.5-14.5); WBC 6.1 K/mcL (4.5-11.0)
--- NOTE | 2020-11-19 08:09 | Internal Med Progress Note ---
SUBJECTIVE Subjective Patient information: Note initiated : 11/19/20 at 8:07 am Service Date, if different from initiated Date: [] Patient: Catherine Valedz 70 y/o F admitted on 11/17/20 for Fracture /Dislocation . Chief Complaint: [] Interval history: 11/18 Overnight: s/p left femur ORIF by orthopedic surgeon. Passed gas but no bowel movement yet. Subjective: Denies any left hip/thigh pain. c/o Right ribcage pain. Passed gas but no bowel movement yet. Tolerating regular diet. 11/19 Patient has chronic cough from smoking. She feels it has not particularly changed. Oxygen was a little bit low last night and started on 1 L. She does not feel short of breath. She smokes half pack per day. Has never been diagnosed with COPD. Review of Systems: denies headache/fever/chills/nausea/vomiting/chest or abdominal pain/diarrhea. Otherwise see above. Constitutional Vitals: Vital Signs Temp Pulse Resp BP Pulse Ox 98.6 F 90 18 98/60 91 11/19/20 07:37 11/19/20 07:37 11/19/20 07:37 11/19/20 07:37 11/19/20 07:37 Period Temp Pulse Resp BP Sys/Rivas Pulse Ox Last 24 Hr 97.5 F-98.7 F 90-104 14-18 86-110/53-64 87-97 Intake and Output 11/18/20 11/19/20 11/19/20 21:59 05:59 13:59 Intake Total 1360 450 Balance 1360 450 Weight 63.106 kg Intake & Output: Intake & Output 11/18/20 11/19/20 11/19/20 21:59 05:59 13:59 Intake Total 1360 450 Balance 1360 450 Weight 63.106 kg Intake: IV 260 Potassium Chloride 20 Meq In 260 Dextrose 5% in Water 250 ml @ 130 mls/hr IV ONCE ONE Rx#: [id number] Oral 1100 450 Other: Meal Lunch Percent of Meal Consumed 50% Feeding Ability Independent Urine Appearance Clear Urine Color Bright Yellow Urine Odor Normal # Voids 1 1 1 Exam: General: Alert, Awake, No acute Distress Eyes/N/T: EOMI, Head/Neck: neck supple, CV: RRR, No murmurs, Pulm: diminished b/l, prolonged exp phase, mild exp wheezing Abd: soft, nontender, +BS x4 Ext: no clubbing/cyanosis/edema, RLE in surgical dressings Neuro: Alert, no focal deficits, moves all extremities, Skin: warm/dry OBJ DATA Labs CBC & Chem 7: 11/19/20 06:40 11/19/20 06:40 Labs: Abnormal Lab Results 11/19/20 11/18/20 11/18/20 06:40 06:05 06:05 RBC 2.68 L 2.73 L Hgb 9.9 L 10.2 L Hct 29.7 L 29.0 L MCV 110.8 H 106.2 H MCH 36.9 H 37.4 H Plt Count 90 L 101 L Neut % (Auto) 91.2 H Lymph % (Auto) 14.8 L 4.4 L Lymph # (Auto) 0.90 L 0.38 L Potassium 2.9 L* BUN 7 L Glucose 115 H Calcium 6.9 L Total Bilirubin AST ALT Alkaline Phosphatase Total Protein 11/17/20 11/17/20 08:46 08:46 RBC 3.52 L Hgb Hct MCV 103.4 H MCH 37.2 H Plt Count 117 L Neut % (Auto) 82.8 H Lymph % (Auto) 10.6 L Lymph # (Auto) 0.73 L Potassium 3.1 L BUN 6 L Glucose 112 H Calcium 7.5 L Total Bilirubin 1.8 H AST 70 H ALT 40 H Alkaline Phosphatase 129 H Total Protein 5.8 L Meds: Medications Acetaminophen (Acetaminophen 325 Mg Tablet) 650 mg PO Q6HP PRN; Protocol PRN Reason: Per Pain Protocol/Fever > 101 Last Admin: 11/18/20 08:37 Dose: 650 mg Documented by: Bisacodyl (Bisacodyl 10 Mg Supp.Rect) 10 mg [place] Q2-3DAYS PRN PRN Reason: Constipation Docusate Sodium (Docusate Sodium 100 Mg Capsule) 100 mg PO BID [facility] Last Admin: 11/18/20 20:09 Dose: 100 mg Documented by: Enoxaparin Sodium (Enoxaparin 40 Mg/0.4 Ml Syringe) 40 mg SQ DAILY [facility] Last Admin: 11/18/20 08:36 Dose: 40 mg Documented by: Morphine Sulfate (Morphine 4 Mg/Ml Vial) 4 mg IV Q4HP PRN; Protocol PRN Reason: Per Pain Protocol Last Admin: 11/18/20 11:07 Dose: 4 mg Documented by: Ondansetron HCl (Ondansetron 4 Mg/2 Ml Vial) 4 mg IV Q6HP PRN PRN Reason: Nausea And Vomiting Oxycodone HCl (Oxycodone Hcl 5 Mg Tablet) 10 mg PO Q4HP PRN; Protocol PRN Reason: Per Pain Protocol Last Admin: 11/18/20 20:09 Dose: 10 mg Documented by: Pantoprazole Sodium (Pantoprazole 40 Mg Tablet) 40 mg PO QD-BID [facility] Polyethylene Glycol (Polyethylene Glycol 3350 17 Gm Packet) 17 gm PO DAILYP PRN PRN Reason: Constipation Senna (Sennosides 1 Tablet) 2 tab PO HS [facility] Last Admin: 11/18/20 20:09 Dose: 2 tab Documented by: Sodium Biphosphate/Sodium Phosphate (Fleets Adult Enema) 1 dose [place] Q3-4DAYS PRN PRN Reason: Constipation Sodium Chloride (0.9 % Sodium Chloride 10 Ml Syringe) 10 ml IV Q8 [facility] Last Admin: 11/19/20 04:52 Dose: 10 ml Documented by: Spironolactone (Spironolactone 25 Mg Tablet) 25 mg PO QDAY [facility] Last Admin: 11/18/20 08:35 Dose: 25 mg Documented by: Throat Lozenges (Benzocaine/Menthol 1 Lozenge) 1 lozenge PO PRN PRN PRN Reason: Sore Throat Last Admin: 11/17/20 20:53 Dose: 1 lozenge Documented by: Zolpidem Tartrate (Zolpidem 5 Mg Tablet) 5 mg PO QHS PRN PRN Reason: Insomnia Last Admin: 11/18/20 20:09 Dose: 5 mg Documented by: A/P Narrative A/P Narrative: A: *Left closed hip femur fracture: s/p ORIF (11/17) *Mild hypoxia w/chronic cough: ?atelectasis -no leukocytosis/afebrile *Likely COPD given history and imaging: *HYpokalemia/Hypophos/Hypomag: *GERD: *Current tobacco use: *HTN: P: -hip and pain control per ortho -Replete electrolytes -cont home aldactone -CM for placement -pt/ot -Smoking cessation counseling -ppx: lovenox/home ppi Time Spent With Patient Time: Total time spent is greater than 50% in coordination of care (as documented) at patient's floor/unit and/or counseling patient: QUALITY Stroke Symptom Onset Unknown: No VTE Deep Vein Thrombosis/Pulmonary Embolism Present on Admission: No
[2020-11-19 08:10] LABS: ALT/SGPT 16 U/L (<40); AST/SGOT 27 U/L (<32); Albumin 2.7 gm/dL (3.2-5.2); Albumin/Globulin Ratio 1.1 (1.0-2.3); Alkaline Phosphatase 89 U/L (39-117); Bilirubin,Direct 0.5 mg/dL (<0.3); Bilirubin,Total 1.1 mg/dL (0.1-1.0); Blood Urea Nitrogen 6 mg/dL (8-23); Calcium 7.4 mg/dL (8.6-10.4); Carbon Dioxide 28 mmol/L (22-30); Chloride 100 mmol/L (96-108); Globulin 2.4 gm/dL (2.2-3.7); Glomerular Filtration Rate 99; Glucose 108 mg/dL (70-105); Lactate Dehydrogenase 198 U/L (135-225); Phosphorous 1.1 mg/dL (2.5-4.5); Triglycerides 117 mg/dL (<150); Uric Acid 4.9 mg/dL (2.5-8.0)
[2020-11-19] MEDS ORDERED: IPRATROPIUM/ALBUTEROL 3 ML AMPUL.NEB NEB PRN (08:47)
[2020-11-19] MEDS ORDERED: IPRATROPIUM/ALBUTEROL 3 ML AMPUL.NEB NEB ONE (08:47)
[2020-11-19] MEDS ORDERED: MAGNESIUM SULFATE 2 GM/50 ML BAG IV ONE (08:48)
--- NOTE | 2020-11-19 09:07 | XRay Report ---
HISTORY: Recent injury with hip fracture, cough, hypoxia and possible atelectasis FINDINGS: There is an acute fracture located laterally in the right ninth rib. Associated with this is mild pleural thickening. There is no pleural effusion or pneumothorax. The lungs are clear and the heart size, pulmonary vasculature, mediastinum and eduarda are normal. There are clips in the right axilla. IMPRESSION: acute fracture of the right ninth rib Interpreted and Authenticated by: Ted Triplett 11/19/20
[2020-11-19] MEDS: oxyCODONE HCL 5 MG TABLET PO PRN ×2 (09:52→20:13)
[2020-11-19] MEDS: PHOSPHORUS 250 MG TABLET PO SCH ×2 (09:53→20:13)
[2020-11-19] MEDS: NEUTRA PHOS 1 PACKET PO SCH ×2 (09:54→20:13)
[2020-11-19] MEDS: DOCUSATE SODIUM 100 MG CAPSULE PO SCH ×2 (09:54→20:13)
[2020-11-19] MEDS: ENOXAPARIN 40 MG/0.4 ML SYRINGE SQ SCH (09:56)
[2020-11-19] MEDS ORDERED: 0.9 % SODIUM CHLORIDE 250 ML IV ONE (10:26)
[2020-11-19] MEDS: SPIRONOLACTONE 25 MG TABLET PO SCH (10:47)
--- NOTE | 2020-11-19 13:12 | Discharge Summary ---
Discharge Provider Provider Patient information: Note initiated : 11/19/20 at 1:11 pm Service Date, if different from initiated Date: [] Patient: Catherine Valdez 70 y/o F admitted on 11/17/20 for Fracture/Dislocation . Chief Complaint: [] Date of admission: 11/17/20 06:55 Discharge date: 11/20/20 Primary care physician: Unknown Unknown Discharge Meds Discharge Medications Home Medications docusate sodium [DOK] 100 mg PO BID #60 cap 11/17/20 [Rx Last Taken Unknown] hydrocodone-acetaminophen 1 - 2 tab PO Q4H PRN #75 tab 11/17/20 [Rx Last Taken Unknown] pantoprazole [Protonix] 40 mg PO QD-BID 11/17/20 [History Confirmed 11/17/20 Last Taken 11/17/20] zolpidem [Ambien] 5 mg PO QHS PRN 11/17/20 [History Confirmed 11/17/20 Last Taken 11/16/20 21:00] aspirin 81 mg PO BID #60 tab 11/18/20 [Rx Last Taken Unknown] albuterol sulfate 2 puff INHALATION Q6H PRN #6.7 g 11/20/20 [Rx Last Taken Unknown] COURSE Hospital Course Hospital course: History of present illness: Ms. Valdez is a 70 year old F h/o GERD, p/w fall with left hip fracture. She has multiple recent episodes of falls, but never had any bone fracture. Last night after having a glass of alcohol and taking an Ambien pill, she was walking in the living room towards her bedroom when her legs suddenly gave out and she fell with her left hip landed on the ground. She denies any LOC. She was sent to outside hospital ER, and hip X rat showed a left femur hip fracture, closed. She is currently complaining of right rib pain, but denies any left hip or left thigh pain as long as she is not moving her leg. Orthopedic surgeon notified and agreed on taking her for surgery. Interval history: 11/18 Overnight: s/p left femur ORIF by orthopedic surgeon. Passed gas but no bowel movement yet. Subjective: Denies any left hip/thigh pain. c/o Right ribcage pain. Passed gas but no bowel movement yet. Tolerating regular diet. 11/19 Patient has chronic cough from smoking. She feels it has not particularly changed. Oxygen was a little bit low last night and started on 1 L. She does not feel short of breath. She smokes half pack per day. Has never been diagnosed with COPD. 11/20 Patient doing well today. No overnight event or new complaints. Patient on oxygen. Based on history and imaging patient highly likely has COPD and would benefit from PFTs will place referral to see pulmonology. *Aldactone stopped for low blood pressure A: *Left closed hip femur fracture: s/p ORIF (11/17) *Mild hypoxia w/chronic cough: ?atelectasis vs likely COPD -no leukocytosis/afebrile *Likely COPD given history and imaging: *HYpokalemia/Hypophos/Hypomag: *GERD: *Current tobacco use: *HTN: aldactone held for low BP Discharge diagnosis: Left hip fracture cough electrolyte imbalance likely COPD Secondary discharge diagnosis: GERD tobacco abuse hypertension Time Spent with Patient Time attestation: Total time spent providing and/or coordinating discharge services: Time spent: Greater than 30 minutes EXAM Constitutional Vitals: Temp Pulse Resp BP Pulse Ox 98.3 F 82 18 101/65 95 11/19/20 11:43 11/19/20 11:43 11/19/20 11:43 11/19/20 11:43 11/19/20 11:43 Discharge Data Data Completed and Pending Labs on day of discharge: Labs from last 24 hours 11/19/20 11/19/20 06:40 06:40 WBC 6.1 RBC 2.68 L Hgb 9.9 L Hct 29.7 L MCV 110.8 H MCH 36.9 H MCHC 33.3 RDW 12.8 Plt Count 90 L MPV 9.2 Neut % (Auto) 77.9 Lymph % (Auto) 14.8 L [place] % (Auto) 6.3 Eos % (Auto) 0.5 Baso % (Auto) 0.5 Lymph # (Auto) 0.90 L [place] # (Auto) 0.38 Eos # (Auto) 0.03 Baso # (Auto) 0.03 Absolute Neutrophils 4.74 Sodium 136 Potassium 3.7 Chloride 100 Carbon Dioxide 28 Anion Gap 8.0 BUN 6 L Creatinine 0.5 L GFR Calculation 99 Glucose 108 H Uric Acid 4.9 Calcium 7.4 L Phosphorus 1.1 L Magnesium 1.4 L Total Bilirubin 1.1 H Direct Bilirubin 0.5 H GGT 134 H AST 27 ALT 16 Alkaline Phosphatase 89 Lactate Dehydrogenase 198 Total Protein 5.1 L Albumin 2.7 L Globulin 2.4 Albumin/Globulin Ratio 1.1 Triglycerides 117 Discharge Plan Patient/Caregiver Discharge Instructions Activity: ambulate only with your walker and as per physical therapy Diet: Regular Diet Activity Restrictions/Additional Instructions: Follow-up with PCP in 3 to 7 days Referral to see product handler in 3 to 14 days for PFTs and COPD evaluation Prescriptions: New docusate sodium [DOK] 100 mg Capsule 100 mg PO BID Qty: 60 RF: 0 hydrocodone-acetaminophen 10-325 mg Tablet 1 - 2 tab PO Q4H PRN (Reason: Pain) Qty: 75 RF: 0 aspirin 81 mg Tablet,Chewable 81 mg PO BID Qty: 60 RF: 0 albuterol sulfate 90 mcg/actuation HFA aerosol inhaler 2 puff inhalation Q6H PRN (Reason: shortness of breath or wheezing) Qty: 6.7 RF: 0 Continued pantoprazole [Protonix] 40 mg Tablet,Delayed Release (Dr/Ec) 40 mg PO QD-BID RF: 0 zolpidem [Ambien] 5 mg Tablet 5 mg PO QHS PRN (Reason: Insomnia) RF: 0 Discontinued spironolactone 25 mg Tablet 25 mg PO QDAY RF: 0 Other Ambulatory Orders: Physical Therapy DC - JOHNY (Routine) Location: None Selected Ordered By: Jeronimo Clements Toilet Riser Discharge Order (ONCE) Location: None Selected Ordered By: Jeronimo Clements Walker (ONCE) Location: None Selected Ordered By: Jeronimo Clements Follow Up Plan Follow up with: Jeronimo Clements PA-C [Physician Art History Instructor] - Patient Disposition: Xfer SNF Prognosis: Good Rehab Potential: Good I certify that the patient requires SNF services: Yes Overall status at discharge: patient is progressing back to baseline Discharge Orders: Discharge Order (Routine); Ordered 11/18/20 Ordered By: Jeronimo Clements QUALITY VTE Deep Vein Thrombosis/Pulmonary Embolism Present on Admission: No
[2020-11-19] MEDS: SENNOSIDES 1 TABLET PO SCH (20:14)
[2020-11-19] MEDS: ZOLPIDEM 5 MG TABLET PO PRN (20:14)
[2020-11-20] MEDS: 0.9 % SODIUM CHLORIDE 10 ML SYRINGE IV SCH ×2 (04:06→13:35)
[2020-11-20 07:37] LABS: ALT/SGPT 14 U/L (<40); AST/SGOT 27 U/L (<32); Albumin 2.6 gm/dL (3.2-5.2); Albumin/Globulin Ratio 1.2 (1.0-2.3); Alkaline Phosphatase 96 U/L (39-117); Bilirubin,Direct 0.4 mg/dL (<0.3); Blood Urea Nitrogen 5 mg/dL (8-23); Calcium 7.4 mg/dL (8.6-10.4); Carbon Dioxide 31 mmol/L (22-30); Chloride 100 mmol/L (96-108); Globulin 2.2 gm/dL (2.2-3.7); Glomerular Filtration Rate 107; Glucose 100 mg/dL (70-105); Lactate Dehydrogenase 203 U/L (135-225); Triglycerides 99 mg/dL (<150); Uric Acid 4.1 mg/dL (2.5-8.0)
[2020-11-20] MEDS ORDERED: NEUTRA PHOS 1 PACKET PO ONE (07:57)
[2020-11-20] MEDS ORDERED: PHOSPHORUS 250 MG TABLET PO ONE (07:57)
--- NOTE | 2020-11-20 07:58 | Internal Med Progress Note ---
SUBJECTIVE Subjective Patient information: Note initiated : 11/20/20 at 7:56 am Service Date, if different from initiated Date: [] Patient: Catherine Valdez 70 y/o F admitted on 11/17/20 for Fracture /Dislocation . Chief Complaint: [] Interval history: 11/18 Overnight: s/p left femur ORIF by orthopedic surgeon. Passed gas but no bowel movement yet. Subjective: Denies any left hip/thigh pain. c/o Right ribcage pain. Passed gas but no bowel movement yet. Tolerating regular diet. 11/19 Patient has chronic cough from smoking. She feels it has not particularly changed. Oxygen was a little bit low last night and started on 1 L. She does not feel short of breath. She smokes half pack per day. Has never been diagnosed with COPD. Review of Systems: denies headache/fever/chills/nausea/vomiting/chest or abdominal pain/diarrhea. Otherwise see above. Constitutional Vitals: Vital Signs Temp Pulse Resp BP Pulse Ox 97.8 F 80 18 112/68 91 11/20/20 04:00 11/20/20 04:00 11/20/20 04:00 11/20/20 04:00 11/20/20 04:00 Period Temp Pulse Resp BP Sys/Rivas Pulse Ox Last 24 Hr 97.8 F-98.6 F 80-106 16-20 98-126/58-71 88-96 Intake and Output 11/19/20 11/20/20 11/20/20 21:59 05:59 13:59 Intake Total 600 400 Balance 600 400 Weight 64.093 kg Intake & Output: Intake & Output 11/19/20 11/20/20 11/20/20 21:59 05:59 13:59 Intake Total 600 400 Balance 600 400 Weight 64.093 kg Intake: Oral 600 400 Other: Meal Dinner Percent of Meal Consumed 75% Feeding Ability Independent # Voids 1 1 1 Exam: General: Alert, Awake, No acute Distress Eyes/N/T: EOMI, Head/Neck: neck supple, CV: RRR, No murmurs, Pulm: diminished b/l, prolonged exp phase, mild exp wheezing Abd: soft, nontender, +BS x4 Ext: no clubbing/cyanosis/edema, RLE in surgical dressings Neuro: Alert, no focal deficits, moves all extremities, Skin: warm/dry OBJ DATA Labs CBC & Chem 7: 11/19/20 06:40 11/20/20 05:24 Labs: Abnormal Lab Results 11/20/20 11/19/20 11/19/20 05:24 06:40 06:40 RBC 2.68 L Hgb 9.9 L Hct 29.7 L MCV 110.8 H MCH 36.9 H Plt Count 90 L Neut % (Auto) Lymph % (Auto) 14.8 L Lymph # (Auto) 0.90 L Potassium Carbon Dioxide 31 H Anion Gap 5.0 L BUN 5 L 6 L Creatinine 0.4 L 0.5 L Glucose 108 H Calcium 7.4 L 7.4 L Phosphorus 2.0 L 1.1 L Magnesium 1.4 L Total Bilirubin 1.1 H Direct Bilirubin 0.4 H 0.5 H GGT 146 H 134 H AST ALT Alkaline Phosphatase Total Protein 4.8 L 5.1 L Albumin 2.6 L 2.7 L 11/18/20 11/18/20 11/17/20 06:05 06:05 08:46 RBC 2.73 L Hgb 10.2 L Hct 29.0 L MCV 106.2 H MCH 37.4 H Plt Count 101 L Neut % (Auto) 91.2 H Lymph % (Auto) 4.4 L Lymph # (Auto) 0.38 L Potassium 2.9 L* 3.1 L Carbon Dioxide Anion Gap BUN 7 L 6 L Creatinine Glucose 115 H 112 H Calcium 6.9 L 7.5 L Phosphorus Magnesium Total Bilirubin 1.8 H Direct Bilirubin GGT AST 70 H ALT 40 H Alkaline Phosphatase 129 H Total Protein 5.8 L Albumin 11/17/20 08:46 RBC 3.52 L Hgb Hct MCV 103.4 H MCH 37.2 H Plt Count 117 L Neut % (Auto) 82.8 H Lymph % (Auto) 10.6 L Lymph # (Auto) 0.73 L Potassium Carbon Dioxide Anion Gap BUN Creatinine Glucose Calcium Phosphorus Magnesium Total Bilirubin Direct Bilirubin GGT AST ALT Alkaline Phosphatase Total Protein Albumin Meds: Medications Acetaminophen (Acetaminophen 325 Mg Tablet) 650 mg PO Q6HP PRN; Protocol PRN Reason: Per Pain Protocol/Fever > 101 Last Admin: 11/18/20 08:37 Dose: 650 mg Documented by: Albuterol/Ipratropium (Ipratropium/Albuterol 3 Ml Ampul.Neb) 3 ml NEB Q4HP PRN PRN Reason: Shortness Of Breath Bisacodyl (Bisacodyl 10 Mg Supp.Rect) 10 mg OH Q2-3DAYS PRN PRN Reason: Constipation Docusate Sodium (Docusate Sodium 100 Mg Capsule) 100 mg PO BID [facility] Last Admin: 11/19/20 20:13 Dose: 100 mg Documented by: Enoxaparin Sodium (Enoxaparin 40 Mg/0.4 Ml Syringe) 40 mg SQ DAILY [facility] Last Admin: 11/19/20 09:56 Dose: 40 mg Documented by: Morphine Sulfate (Morphine 4 Mg/Ml Vial) 4 mg IV Q4HP PRN; Protocol PRN Reason: Per Pain Protocol Last Admin: 11/18/20 11:07 Dose: 4 mg Documented by: Ondansetron HCl (Ondansetron 4 Mg/2 Ml Vial) 4 mg IV Q6HP PRN PRN Reason: Nausea And Vomiting Oxycodone HCl (Oxycodone Hcl 5 Mg Tablet) 10 mg PO Q4HP PRN; Protocol PRN Reason: Per Pain Protocol Last Admin: 11/19/20 20:13 Dose: 10 mg Documented by: Pantoprazole Sodium (Pantoprazole 40 Mg Tablet) 40 mg PO QD-BID [facility] Polyethylene Glycol (Polyethylene Glycol 3350 17 Gm Packet) 17 gm PO DAILYP PRN PRN Reason: Constipation Senna (Sennosides 1 Tablet) 2 tab PO HS [facility] Last Admin: 11/19/20 20:14 Dose: 2 tab Documented by: Sodium Biphosphate/Sodium Phosphate (Fleets Adult Enema) 1 dose OH Q3-4DAYS PRN PRN Reason: Constipation Sodium Chloride (0.9 % Sodium Chloride 10 Ml Syringe) 10 ml IV Q8 [facility] Last Admin: 11/20/20 04:06 Dose: 10 ml Documented by: Throat Lozenges (Benzocaine/Menthol 1 Lozenge) 1 lozenge PO PRN PRN PRN Reason: Sore Throat Last Admin: 11/17/20 20:53 Dose: 1 lozenge Documented by: Zolpidem Tartrate (Zolpidem 5 Mg Tablet) 5 mg PO QHS PRN PRN Reason: Insomnia Last Admin: 11/19/20 20:14 Dose: 5 mg Documented by: A/P Narrative A/P Narrative: A: *Left closed hip femur fracture: s/p ORIF (11/17) *Mild hypoxia w/chronic cough: ?atelectasis vs likely COPD -no leukocytosis/afebrile *Likely COPD given history and imaging: *HYpokalemia/Hypophos/Hypomag: *GERD: *Current tobacco use: *HTN: P: -hip and pain control per ortho -Replete electrolytes -cont home aldactone -CM for placement -pt/ot -Smoking cessation counseling -f/u with Pulm for PFT's -ppx: lovenox/home ppi Time Spent With Patient Time: Total time spent is greater than 50% in coordination of care (as documented) at patient's floor/unit and/or counseling patient: QUALITY Stroke Symptom Onset Unknown: No VTE Deep Vein Thrombosis/Pulmonary Embolism Present on Admission: No
[2020-11-20] MEDS: ENOXAPARIN 40 MG/0.4 ML SYRINGE SQ SCH (08:23)
[2020-11-20] MEDS: DOCUSATE SODIUM 100 MG CAPSULE PO SCH (08:23)
[2020-11-20] MEDS: oxyCODONE HCL 5 MG TABLET PO PRN ×2 (08:30→13:35)
== END 2020-11-20 14:30 | DRG 522 ==
LOC: MEDSUR 06:55
PROVIDERS: ADMIT Internal Medicine; ATTEND Internal Medicine